=== PATIENT | male | born 1940 | race Two or more races ===

== ENCOUNTER 2018-11-09 13:33 | Outpatient (CLI) | payer OTHER | END 2018-11-09 13:40 | disposition home or self-care (01) | LOC: RAD 501 13:33 | DX: R05 Cough (principal); M54.5 Low back pain ==

== ENCOUNTER 2018-12-02 09:47 | Outpatient (CLI) | payer OTHER | END 2018-12-02 10:22 | disposition home or self-care (01) | LOC: SONOGRAMA 09:47 | DX: I13.2 Hypertensive heart and chronic kidney disease with heart failure and with stage 5 chronic kidney disease, or end stage renal disease (principal) ==

== ENCOUNTER → 2018-12-02 | Outpatient (CLI) | payer OTHER | END | disposition home or self-care (01) | LOC: NUCLEAR 08:45 | DX: I80.292 Phlebitis and thrombophlebitis of other deep vessels of left lower extremity (principal); I80.291 Phlebitis and thrombophlebitis of other deep vessels of right lower extremity ==

== ENCOUNTER 2019-08-15 14:48 | Outpatient (CLI) | payer OTHER | END 2019-08-15 15:03 | disposition home or self-care (01) | LOC: RAD 14:48 | DX: R07.89 Other chest pain (principal) ==

== ENCOUNTER 2020-02-29 10:42 | Outpatient (CLI) | payer OTHER | END 2020-02-29 13:32 | disposition home or self-care (01) | LOC: NUCLEAR 10:42 | PROVIDERS: ATTEND Internal Medicine Cardiovascular Disease | DX: I45.0 Right fascicular block (principal); E78.00 Pure hypercholesterolemia, unspecified; I25.10 Atherosclerotic heart disease of native coronary artery without angina pectoris ==

== ENCOUNTER → 2020-03-21 | Outpatient (CLI) | payer OTHER | END | disposition home or self-care (01) | LOC: TOM 07:21 | PROVIDERS: ATTEND Internal Medicine Gastroenterology | DX: K59.09 Other constipation (principal); K80.80 Other cholelithiasis without obstruction; K80.50 Calculus of bile duct without cholangitis or cholecystitis without obstruction ==

== ENCOUNTER → 2020-03-23 | Outpatient (CLI) | payer OTHER | END | disposition home or self-care (01) | LOC: MRI 07:15 | PROVIDERS: ATTEND Specialist | DX: K80.50 Calculus of bile duct without cholangitis or cholecystitis without obstruction (principal) | CPT/HCPCS: 74181 ==

== ENCOUNTER 2020-03-28 14:22 | Outpatient (CLI) | payer OTHER | END 2020-03-28 14:29 | disposition home or self-care (01) | LOC: RAD 14:22 | PROVIDERS: ATTEND Internal Medicine Gastroenterology | DX: R07.89 Other chest pain (principal) ==

== ENCOUNTER 2020-04-02 07:18 | Outpatient (CLI) | payer OTHER | END 2020-04-02 08:20 | disposition home or self-care (01) | LOC: NUCLEAR 07:18 | PROVIDERS: ATTEND Internal Medicine Gastroenterology | DX: K80.10 Calculus of gallbladder with chronic cholecystitis without obstruction (principal) | CPT/HCPCS: 78227; A9537; J2805 ==

== ENCOUNTER → 2020-11-15 | Outpatient (CLI) | payer OTHER | END | disposition home or self-care (01) | LOC: SONOGRAMA 10:52 | PROVIDERS: ATTEND Internal Medicine Gastroenterology | DX: N28.89 Other specified disorders of kidney and ureter (principal); Q61.00 Congenital renal cyst, unspecified ==

== ENCOUNTER → 2021-03-18 09:43 | Outpatient (CLI) | payer OTHER | END | disposition home or self-care (01) | LOC: RAD 09:43 | PROVIDERS: ATTEND Dermatology Procedural Dermatology | DX: I10 Essential (primary) hypertension (principal); K30 Functional dyspepsia; K21.9 Gastro-esophageal reflux disease without esophagitis ==

== ENCOUNTER 2021-04-18 16:34 | Outpatient (CLI) | payer OTHER | END 2021-04-18 16:40 | disposition home or self-care (01) | LOC: RAD 16:34 | PROVIDERS: ATTEND Urology | DX: I10 Essential (primary) hypertension (principal) ==

== ENCOUNTER 2021-05-06 10:59 | Outpatient (CLI) | payer OTHER | END 2021-05-21 14:49 | disposition home or self-care (01) | LOC: RAD 10:59 | PROVIDERS: ATTEND Orthopaedic Surgery Orthopaedic Surgery of the Spine | DX: M43.22 Fusion of spine, cervical region (principal); Z01.810 Encounter for preprocedural cardiovascular examination; J45.901 Unspecified asthma with (acute) exacerbation; J45.31 Mild persistent asthma with (acute) exacerbation; J44.1 Chronic obstructive pulmonary disease with (acute) exacerbation; J98.11 Atelectasis ==

== ENCOUNTER 2023-01-20 07:09 | Outpatient (CLI) | payer OTHER | END 2023-01-20 07:11 | disposition home or self-care (01) | LOC: NUCLEAR 07:09 | PROVIDERS: ATTEND Internal Medicine Cardiovascular Disease | DX: I25.10 Atherosclerotic heart disease of native coronary artery without angina pectoris (principal) | CPT/HCPCS: 78452; 93017; A9500 ==